=== PATIENT | female | born 1980 ===

== ENCOUNTER 2016-10-15 19:57 | Emergency (ER) | payer BC ==
[2016-10-15 20:06] VITALS: BP 140/78
[2016-10-15] MEDS ORDERED: Ibuprofen TAB* 400 MG PO ONE (20:25)
--- NOTE | 2016-10-15 20:34 | UC ---
Back Pain HPI - HPI Summary HPI Summary: 36 y/o female presents to urgent care c/o lower back ,fever and headache since Tuesday. She reports she also has a round rash in her RT thigh noticed yesterday. Patient has been taking ibuprofen for her fever. Pt states her Headache is dull and constant , 5/10 associated with 2 episodes of vomiting. She also noticed a rash in he left tight yesterday. Patient denies SOB, chest pain, diarrhea and doesn't recall a tick bite in the past month. - History of Current Complaint Chief Complaint: UCSkin Stated Complaint: FEVER,RASH Time Seen by Provider: 10/15/16 20:08 Hx Obtained From: Patient Hx Last Menstrual Period: 09/26/16 ?: No Onset/Duration: Gradual Onset, Lasting Days, Still Present Timing: Constant Severity Initially: Mild Severity Currently: Moderate Pain Intensity: 5 Pain Scale Used: 0-10 Numeric Back Pain: Radiates To - to the hips and lower extremities Character: Dull Aggravating: Bending Alleviating: Rest Associated Signs And Symptoms: Positive: Fever, Flank Pain, Other - headache, rash - Risk Factors AAA Risk Factors: Negative TAD Risk Factors: Negative Cauda Equina Risk Factors: Negative Epidural Abscess Risk Factors: Negative, Fever - Allergies/Home Medications Allergies/Adverse Reactions: Allergies Allergy/AdvReac Type Severity Reaction Status Date / Time No Known Allergies Allergy Verified 10/15/16 20:06 Home Medications: Home Medications Lactobacillus [Probiotic] 1 cap PO DAILY 10/15/16 [History Confirmed 10/15/16] PMH/Surg Hx/FS Hx/Imm Hx Previously Healthy: Yes GI/ History: Other Other GI/ History: IBS, - Surgical History Surgical History: Yes Surgery Procedure, Year, and Place: ovarian cyst removed, catoract - Social History Occupation: Employed Full-time Lives: With Family Alcohol Use: Weekly Substance Use Type: None Smoking Status (MU): Never Smoked Tobacco Review of Systems Constitutional: Fever Skin: Rash - RT thight Eyes: Negative ENT: Negative Respiratory: Negative Cardiovascular: Negative Gastrointestinal: Negative Genitourinary: Negative Motor: Negative Neurovascular: Negative Musculoskeletal: Other: - Lower back pain radiating to hip and lower extremities Neurological: Headache Psychological: Negative All Other Systems Reviewed And Are Negative: Yes Physical Exam Triage Information Reviewed: Yes Appearance: Well-Appearing - febrile, Well-Nourished, Pain Distress - mild, Obese Vital Signs: Initial Vital Signs Temp 101.7 F 10/15/16 20:00 Pulse 136 10/15/16 20:00 Resp 18 10/15/16 20:00 BP 140/78 10/15/16 20:00 Pulse Ox 99 10/15/16 20:00 Vital Signs Reviewed: Yes Eye Exam: Normal Eyes: Positive: Conjunctiva Clear - PERRLA, EOMI, fundus grossly intact ENT Exam: Normal ENT: Positive: Normal ENT inspection, Hearing grossly normal, Pharyngeal erythema, TMs normal. Negative: Tonsillar swelling, Tonsillar exudate Dental Exam: Normal Neck exam: Normal Neck: Positive: Supple, Nontender, No Lymphadenopathy. Negative: Tenderness @, Enlarged Nodes @ Respiratory Exam: Normal Respiratory: Positive: Chest non-tender, Lungs clear, Normal breath sounds Cardiovascular Exam: Normal Cardiovascular: Positive: RRR, No Murmur, Pulses Normal - S1S2 Abdominal Exam: Normal Abdomen Description: Positive: Nontender, No Organomegaly, Soft, CVA Tenderness (R), CVA Tenderness (L) Bowel Sounds: Positive: Present Musculoskeletal: Positive: Strength Intact, ROM Intact, No Edema, Other: - Positve paraspinal muscle tenderness on palpation at the level of L5-S1, and tenderness both hips on deep palpation. Decrease ROM of back due to pain. Leg raise: positive. Neurological Exam: Normal Neurological: Positive: Alert - and orient x4, CNII-CXII WNL,, Muscle Tone Normal, Other: Psychological Exam: Normal Skin: Positive: rashes - RT lateral side of thigh with a round macular rash with central clearing. Size 4X4. erythema, swollen, no tenderness on palpation. Back Pain Course/Dx - Course Course Of Treatment: Pt c/o lower back pain, fever, rash and headache x 3days: Hx obtained. Pt with temp: 101.7F. PE abnormal findings: Abdomen Description: Positive: Nontender, No Organomegaly, Soft, CVA Tenderness (R), CVA Tenderness ( L). Musculoskeletal: Positive: Strength Intact, ROM Intact, No Edema, Other: - Positve paraspinal muscle tenderness on palpation at the level of L5-S1, and tenderness both hips on deep palpation. Decrease ROM of back due to pain. Leg raise test:negative, Romberg test: negative. UA and Urine pregnacy test ordered. Results: UA:trace of blood H, Urine : negative. Pt given Ibuprofen 800mg PO once to decrease fever. Patient tranfer to the ED to r/o kidney stone, pyelonephritis etc. Spoke to charge Nurse Michelle at ED . Pt decline ambulance transfer and sign AMA to transfer and stated her parents will take her to the ER. Patient advised on importance to go to the ER for further evaluationa and treatment. Patient understood and agreed. Pt's temp before leaving urgent care: 100.6F. Patient left anbulating, alert and oriente x3. - Differential Dx/Diagnosis Differential Diagnosis/HQI/PQRI: Renal Colic, Other - kidney stone, pyelonephritis, Provider Diagnoses: Lower back pain, Headache, rash, fever - Physician Notifications Discussed Patient Care With: Dr Valera and we agreed the Pt should be transfer to r/o kidney stone or pyelonephritis. Discharge - Discharge Plan Condition: Stable Disposition: AGAINST MEDICAL ADVICE Referrals: Kelly Burkett MD [Primary Care Provider] -
== END 2016-10-15 21:22 | disposition left against medical advice (07) ==
LOC: UCEAST 19:57
DX: M54.5 Low back pain (principal); R51 Headache; R21 Rash and other nonspecific skin eruption; R50.9 Fever, unspecified; K58.9 Irritable bowel syndrome, unspecified
CPT/HCPCS: 81003; 84702; 99212; A9270-GY; G0463

== ENCOUNTER → 2016-10-15 21:42 | Emergency (ER) | payer BC ==
[~2016-10-15 21:42] MED LIST: DOXYcycline CAP(*) 100 MG PO ONE
[2016-10-16 00:15] VITALS: BP 114/61
--- NOTE | 2016-10-16 03:04 | ED ---
Srinivas Jasmine Alok, scribed for Florentino Lawrence MD on 10/15/16 at 2324 . Skin Complaint - HPI Summary HPI Summary: 36F presents to the ED sent her from with a bullseye shaped rash with pruritus on the back of the right knee. Pt first noticed the rash one week ago and states she may have been exposed to a tick 2 weeks ago in her back yard. Pt also notes a fever in the evening 3 days ago as well as generalized myalgia and fatigue. Pt also notes a TRINH 3 days ago. Pt also notes some abd cramping earlier today which has subsided since PMHx includes IBS. Pt has NKDA. - History of Current Complaint Chief Complaint: EDGeneral Time Seen by Provider: 10/15/16 23:04 Stated Complaint: FEVER/ABD AND LOWER BACK PAIN Hx Obtained From: Patient Hx Last Menstrual Period: 09/26/16 Onset/Duration: Started Weeks Ago, Atraumatic, Still Present Skin Exposure Onset/Duration: Weeks Ago Timing: Constant Onset Severity: Moderate Current Severity: Moderate Pain Intensity: 6 Pain Scale Used: 0-10 Numeric Skin Location: Leg Character: Pruritus, Redness Aggravating Symptom(s): Nothing Alleviating Symptom(s): Nothing Associated Signs & Symptoms: Fever, Rash Related History: Possible Reaction to: Insect - Allergy/Home Medications Allergies/Adverse Reactions: Allergies Allergy/AdvReac Type Severity Reaction Status Date / Time No Known Allergies Allergy Verified 10/15/16 20:06 PMH/Surg Hx/FS Hx/Imm Hx GI History: Reports: Hx Irritable Bowel - Surgical History Surgery Procedure, Year, and Place: ovarian cyst removed, catoract Infectious Disease History: Denies: Traveled Outside the [place] in Last 30 Days - Family History Known Family History: Negative: Diabetes - Social History Occupation: Employed Full-time Lives: With Family Alcohol Use: Weekly Substance Use Type: Reports: None Smoking Status (MU): Never Smoked Tobacco Review of Systems Positive: Fever, Fatigue Positive: Abdominal Pain Positive: Myalgia, Other - lower back pain Positive: Rash Positive: Headache All Other Systems Reviewed And Are Negative: Yes Physical Exam - Summary Physical Exam Summary: The patient is well-nourished in no acute distress and in no acute pain. The skin is warm and dry and skin color reflects adequate perfusion. Large area posterior right thigh 9 cm in diameter nonvascular rash, does not pietro. Appears to be bullseye rash consistent with erythema migrans. HEENT: The head is normocephalic and atraumatic. The pupils are equal and reactive. The conjunctivae are clear and without drainage. Nares are patent and without drainage. Mouth reveals moist mucous membranes and the throat is without erythema and exudate. The external ears are intact. The ear canals are patent and without drainage. The tympanic membranes are intact. Neck is supple with full range of motion and non-tender. There are no carotid bruits. There is no neck vein distension. No nuchal rigidity. Respiratory: Chest is non-tender. Lungs are clear to auscultation and breath sounds are symmetrical and equal. Cardiovascular: Hear is regular rate and rhythm. There is no murmur or rub auscultated. There is no peripheral edema and pulses are symmetrical and equal. Abdomen: The abdomen is soft and non-tender. There are normal bowel sounds heard in all four quadrants and there is no organomegaly palpated. Musculoskeletal: No CVA tenderness. Lower back pain left-side. Extremities are non-tender with full range of motion. There is good capillary refill. There is no peripheral edema or calf tenderness elicited. Neurological: Patient is alert and oriented to person, place and time. The patient has symmetrical motor strength in all four extremities. Cranial nerves are grossly intact. Deep tendon reflexes are symmetrical and equal in all four extremities. Psychiatric: The patient has an appropriate affect and does not exhibit any anxiety or depression. Triage Information Reviewed: Yes Vital Signs On Initial Exam: Initial Vitals Temp Pulse Resp BP Pulse Ox 100 F 117 20 138/75 98 10/15/16 21:45 10/15/16 21:45 10/15/16 21:45 10/15/16 21:45 10/15/16 21:45 Vital Signs Reviewed: Yes Diagnostics - Vital Signs Vital Signs Temp Pulse Resp BP Pulse Ox 10/15/16 21:45 100 F 117 20 138/75 98 - Laboratory Lab Statement: Any lab studies that have been ordered have been reviewed, and results considered in the medical decision making process. Course/Dx - Course Course Of Treatment: Pt presented with bullseye rash on back of the right thigh. Will treat as erythema migrans and discharge with Rx for doxycycline. - Differential Diagnoses - Skin Complaint Differential Diagnoses: Tick Born Illness, Other - fever, arthralgia - Diagnoses Provider Diagnoses: Erythema migrans (Lyme disease) Discharge - Discharge Plan Condition: Stable Disposition: HOME Prescriptions: DOXYcycline CAP(*) [DOXYcycline 100MG CAP(*)] 100 mg PO BID #[id number] cap Patient Education Materials: Lyme Disease (ED) Referrals: Kelly Burkett MD [Primary Care Provider] - The documentation as recorded by the Srinivas hedrick Alok accurately reflects the service I personally performed and the decisions made by me, Florentino Lawrence MD.
== END | disposition home or self-care (01) ==
LOC: ED 21:42
DX: A69.20 Lyme disease, unspecified (principal); R50.9 Fever, unspecified; R21 Rash and other nonspecific skin eruption; R53.83 Other fatigue; R10.9 Unspecified abdominal pain; M54.5 Low back pain; R51 Headache
CPT/HCPCS: 99282; A9270-GY